=== PATIENT | female | born 1955 | race Native Hawaiian/Other Pacific Islander ===

== ENCOUNTER 2020-04-17 10:23 | Emergency (ER) | payer OTHER ==
[~2020-04-17] VITALS: Ht 162.6 cm; Wt 83.0 kg
[2020-04-17 12:42] VITALS: BP 112/71; TEMP 98.4
== END 2020-04-17 12:41 | disposition home or self-care (01) ==
LOC: ED 10:23
PROC: 0RSXXZZ Reposition Left Finger Phalangeal Joint, External Approach (ICD-10-PCS; principal; 2020-04-17)
DX: S63.285A Dislocation of proximal interphalangeal joint of left ring finger, initial encounter (principal); S00.83XA Contusion of other part of head, initial encounter; W01.198A Fall on same level from slipping, tripping and stumbling with subsequent striking against other object, initial encounter; Y92.89 Other specified places as the place of occurrence of the external cause
CPT/HCPCS: 96372; 99283; J1885

== ENCOUNTER 2020-10-26 09:09 | Outpatient (CLI) | payer OTHER, MEDICARE | END 2020-10-26 19:48 | disposition home or self-care (01) | LOC: NM 09:09 | PROVIDERS: ATTEND Specialist | DX: R94.39 Abnormal result of other cardiovascular function study (principal); I10 Essential (primary) hypertension; R53.83 Other fatigue | CPT/HCPCS: A9500 ==

== ENCOUNTER 2022-04-03 08:01 | Outpatient (CLI) | payer OTHER, MEDICARE | END 2022-04-03 18:55 | disposition home or self-care (01) | LOC: CT 08:01 | PROVIDERS: ATTEND Nurse Practitioner | DX: I25.10 Atherosclerotic heart disease of native coronary artery without angina pectoris (principal); I77.89 Other specified disorders of arteries and arterioles | CPT/HCPCS: 36415; 82565; 84520; Q9963 ==

== ENCOUNTER 2023-02-13 08:30 | Outpatient (CLI) | payer OTHER, MEDICARE | END 2023-02-13 19:05 | disposition home or self-care (01) | LOC: NM 08:30 | PROVIDERS: ATTEND Nurse Practitioner | DX: I25.10 Atherosclerotic heart disease of native coronary artery without angina pectoris (principal) | CPT/HCPCS: A9500 ==